=== PATIENT | male | born 2005 | race Two or more races ===

== ENCOUNTER 2025-02-25 15:15 | Emergency (ER) | payer MEDICAID, OTHER ==
[~2025-02-25] VITALS: Ht 172.7 cm; Wt 66.3 kg
[2025-02-25 15:17] VITALS: BP 105/61; PULSE 76; RESP 15; TEMP 97.8; O2SAT 97
== END 2025-02-25 16:22 | disposition left against medical advice (07) ==
LOC: ER 15:15
DX: S61.412A Laceration without foreign body of left hand, initial encounter (principal); Z53.21 Procedure and treatment not carried out due to patient leaving prior to being seen by health care provider; X58.XXXA Exposure to other specified factors, initial encounter; Y93.89 Activity, other specified; Y92.89 Other specified places as the place of occurrence of the external cause; Y99.8 Other external cause status